=== PATIENT | female | born 1960 | race Caucasian/White ===

== ENCOUNTER 2019-02-25 09:15 | Emergency (ER) | payer OTHER ==
[2019-02-25 09:23] VITALS: TEMP 98.7
--- NOTE | 2019-02-25 09:47 | PDOC ---
History of Present Illness - General Chief Complaint: Redness To Affected Area Stated Complaint: LEFT 3RD FINGER SWELLING, REDNESS Time Seen by Provider: 02/25/19 09:23 - History of Present Illness Initial Comments: 02/25/19 10:36 Chief complaint: Finger infection History of present illness: Swelling and redness of the left third finger, distal phalanx, for approximately one week. Primary physician and diagnosed possible herpes possible staph, and she was started on clindamycin. Some improvement, but yesterday it worsened with the formation of a yellowish blister on the dorsum. She began Valtrex yesterday for possible herpetic yumi Review of systems: No systemic signs such as fever/chills, headache, body aches , fatigue, or malaise. Remainder systems reviewed and negative Past medical history: Denies diabetes. Mild hypertension controlled on metoprolol. Recurrent herpes labialis in the past Social/family history reviewed and noncontributory. Physical exam: Alert and oriented well-developed well-nourished no acute distress cheerful and cooperative Afebrile, vital signs normal Conjunctivae, ENT clear Neck supple without bruit mass or nodes Chest clear CV regular without murmur rub or gallop Abdomen soft nontender without mass or organomegaly Left third finger: There is swelling tenderness and erythema of the distal phalanx with a 5 mm bolus lesion over the dorsum of the distal phalanx, fluctuant, and white. No lymphadenopathy of the arm or axilla and no lymphangitic streaking was present. Impression: Pus filled bulla on the finger, with surrounding erythema and induration. Most likely herpes. Completed a course of clindamycin without resolution Plan: Drainage of blister, cultures for staph and herpes, Keflex and Valtrex, close follow-up. 02/25/19 10:42 Past History - Past Medical History Allergies/Adverse Reactions: Allergies Allergy/AdvReac Type Severity Reaction Status Date / Time No Known Allergies Allergy Verified 02/25/19 09:18 Home Medications: Ambulatory Orders Atenolol [Tenormin] 50 mg PO DAILY 02/25/19 Cephalexin Monohydrate [Keflex] 500 mg PO Q8H #21 capsule 02/25/19 Valacyclovir HCl [Valtrex] 1,000 mg PO TID #21 tablet 02/25/19 COPD: No HTN: Yes Other medical history: ARTHRITIS - Suicide/Smoking/Psychosocial Hx Smoking History: Never smoked Have you smoked in the past 12 months: No Hx Alcohol Use: No *Physical Exam - Vital Signs Last Vital Signs Temp Pulse Resp BP Pulse Ox 98.7 F 64 18 162/102 H 100 02/25/19 09:15 02/25/19 09:15 02/25/19 09:15 02/25/19 09:15 02/25/19 09:15 Medical Decision Making - Medical Decision Making 02/25/19 10:41 Procedure note: Drainage of superficial abscess Skin was prepped with Betadine, then thoroughly cleansed with normal saline. The blister was unroofed and a small amount of pus was drained. Cultures were sent for staff and herpes. The wound was dressed with bacitracin and sterile 2 x 2, then covered with tube gauze Wound care was discussed Medication was begun and she was instructed to follow-up with her primary physician in 24 hours. There were no signs of systemic illness and no lymphadenopathy. *DC/Admit/Observation/Transfer Diagnosis at time of Disposition: Herpetic yumi - Discharge Dispostion Disposition: HOME Condition at time of disposition: Stable Decision to Admit order: No - Prescriptions Prescriptions: Cephalexin Monohydrate [Keflex] 500 mg PO Q8H #21 capsule Valacyclovir HCl [Valtrex] 1,000 mg PO TID #21 tablet - Referrals Referrals: Georgina Martin MD [Primary Care Provider] - 24 hours - Patient Instructions Additional Instructions: Keep elevated. Wound care as directed. Medication as directed. See primary physician 24 hours to assess response to therapy. Return to ER if redness, swelling becomes more severe. - Post Discharge Activity
[2019-02-25 09:54] VITALS: BP 140/98; PULSE 77
--- NOTE | 2019-02-26 10:52 | PDOC ---
Patient Follow-up (Call Back) - Post ED Follow - Up Chief Complaint: Wound Condition at time of discharge: Stable Disposition at time of original discharge: HOME Reason for Call Back: Abnwl. Lab (Deondre's wound culture is positive for MRSA. Patient called at home with no answer)
== END 2019-02-25 10:05 | disposition home or self-care (01) ==
LOC: FER 09:15
PROC: 0HQGXZZ Repair Left Hand Skin, External Approach (ICD-10-PCS; principal; 2019-02-25)
DX: B00.89 Other herpesviral infection (principal); I10 Essential (primary) hypertension
CPT/HCPCS: 87070; 87186; 87205; 99282-25